=== PATIENT | female | born 1950 | race Caucasian/White ===

== ENCOUNTER 2021-10-25 13:34 | Emergency (ER) | payer OTHER ==
[~2021-10-25] VITALS: Ht 147.3 cm; Wt 60.8 kg
[2021-10-25 13:48] VITALS: BP_SYST 179
--- NOTE | 2021-10-25 13:48 | NUR ---
Patient to ER bed 5 to gown for evaluation. Side rails up. Report given to Boris LEAL.
--- NOTE | 2021-10-25 13:50 | NUR ---
Pt coming from home ambulatory with assistive device (walker) accompanied by her son. Pt c/o having palpitations yesterday that started abruptly and lasted only a few minutes. No chest pain and no sob. Denies n/v. BP elevated at 179/95 other vitals stable. Skin intact. PCP recommended pt to go to ER today to get a cardiac work up. Connected pt to library monitor. Bed in lowest position.
--- NOTE | 2021-10-25 14:00 | NUR ---
EKG performed at by [facility]. Physician given copy of EKG for review.
--- NOTE | 2021-10-25 14:09 | NUR ---
i# 20 gauge angiocath placed to right AC. Use of asceptic technique. Opsite placed over site. Blood return noted. Blood for lab drawn from site. Flushed with 10 cc of normal saline. No evidence of infiltration noted. Patient tolerated well.
[2021-10-25 14:23] LABS: BASOPHILS # (AUTO) 0.1 K/uL (0.0-0.2); EOSINOPHILS # (AUTO) 0.1 K/uL (0.0-0.4); HEMATOCRIT 26.9 % (36-48); HEMOGLOBIN 8.7 g/dL (12.0-16.0); LYMPHOCYTES # (AUTO) 1.5 K/uL (1.0-5.5); LYMPHOCYTES % (AUTO) 19.1 % (20.5-51.5); MEAN CORPUSCULAR HEMOGLOBIN 21 pg (27-31); MEAN CORPUSCULAR HGB CONC 32 % (32-36); MEAN CORPUSCULAR VOLUME 63 fL (79.0-98.0); MONOCYTES # (AUTO) 0.6 K/uL (0.0-1.0); MONOCYTES % (AUTO) 7.8 % (1.7-9.3); NEUTROPHILS # (AUTO) 5.6 K/uL (1.8-7.7); NEUTROPHILS % (AUTO) 71.1 % (40.0-70.0); PLATELET COUNT (AUTO) 383 K/uL (130-430); RED BLOOD CELL COUNT(AUTO) 4.24 MIL/uL (4.2-6.2); RED CELL DISTRIBUTION WIDTH 15.9 % (9.0-15.0); WHITE BLOOD COUNT (AUTO) 7.9 K/uL (4.8-10.8)
--- NOTE | 2021-10-25 15:00 | NUR ---
ER at bedside examining patient.
--- NOTE | 2021-10-25 15:04 | NUR ---
Bryan vergara in [facility] - 10/25/21 at 1504 by [id number] [place] at bedside examining patient.
[2021-10-25 15:08] LABS: CREATININE 0.5 mg/dL (0.55-1.30); POTASSIUM 3.3 mmol/L (3.5-5.1)
[2021-10-25 15:23] LABS: ALBUMIN 3.9 g/dL (3.4-4.8); FREE T4 (FREE THYROXINE) 0.9 ng/dl (0.8-1.5); THYROID STIMULATING HORMONE 1.89 uIu/mL (0.36-3.74); TOTAL BILIRUBIN 0.1 mg/dL (0.0-1.0)
[2021-10-25] MEDS ORDERED: LABETALOL HCL 20 MG/4 ML CARTRIDGE IVP ONE (15:30)
[2021-10-25] MEDS ORDERED: NACL 0.9% 1,000 ML IV ONE (15:45)
[2021-10-25 16:30] VITALS: BP_SYST 132
[2021-10-25] MEDS ORDERED: POTASSIUM CHLORIDE 20 MEQ/PKT PACKET PO ONE (16:30)
[2021-10-25] MEDS ORDERED: POTA-197 PO (16:42)
--- NOTE | 2021-10-25 16:50 | NUR ---
Patient given written and verbal discharge instructions and verbalizes understanding. ER MD discussed with patient the results and treatment provided. Patient in stable condition. ID arm band removed. IV catheter removed intact and dressing applied, no active bleeding. Rx of given. Patient educated on pain management and to follow up with PMD. Opportunity for questions provided and answered.
== END 2021-10-25 16:50 | disposition home or self-care (01) ==
LOC: SED 13:34
DX: R00.2 Palpitations (principal); R07.9 Chest pain, unspecified; R42 Dizziness and giddiness; R51.9 Headache, unspecified; E87.6 Hypokalemia; E11.9 Type 2 diabetes mellitus without complications; I10 Essential (primary) hypertension; Z79.899 Other long term (current) drug therapy
CPT/HCPCS: 99285; 96374; 71045; 96361; 80053; 84439; 84443; 85025; 84484; 36415; 93005; J7030